=== PATIENT | female | born 1980 | race Caucasian/White ===

== ENCOUNTER 2017-07-29 19:59 | Emergency (ER) | payer OTHER ==
--- NOTE | 2017-07-29 20:48 | UC ---
Ear Complaint HPI - HPI Summary HPI Summary: She had a fever and malaise on Thursday and then felt better today. She bent over and suddenly felt pain in the left ear. She has no prior ear surgery. - History of Current Complaint Chief Complaint: UCRespiratory Stated Complaint: LEFT EAR PAIN Time Seen by Provider: 07/29/17 20:37 Hx Obtained From: Patient Hx Last Menstrual Period: 07/24/17 Onset/Duration: Sudden Onset, Lasting Hours Severity Initially: Moderate Severity Currently: Moderate Aggravating Factors: Nothing Alleviating Factors: Nothing Associated Signs/Symptoms: Positive: URI Symptoms - Allergies/Home Medications Allergies/Adverse Reactions: Allergies Allergy/AdvReac Type Severity Reaction Status Date / Time Pseudoephedrine Allergy Tachycardia Verified 07/29/17 20:09 [From Sudafed] Home Medications: Home Medications Copper (Iud) [Paragard IUD] 07/29/17 [History] PMH/Surg Hx/FS Hx/Imm Hx Previously Healthy: Yes - Surgical History Surgical History: None - Family History Known Family History: Positive: None - Social History Lives: With Family Alcohol Use: Rare Substance Use Type: None Smoking Status (MU): Never Smoked Tobacco - Immunization History Most Recent Influenza Vaccination: NOT IN 2017 Review of Systems ENT: Ear Ache All Other Systems Reviewed And Are Negative: Yes Physical Exam Triage Information Reviewed: Yes Appearance: Well-Appearing, No Pain Distress, Well-Nourished Vital Signs: Initial Vital Signs Temp 98.6 F 07/29/17 20:10 Pulse 88 07/29/17 20:10 Resp 18 07/29/17 20:10 Pulse Ox 100 07/29/17 20:10 Vital Signs Reviewed: Yes Eyes: Positive: Conjunctiva Clear ENT: Positive: TM bulging - left TM clear effusion with bulging but no purulence and no redness or dullness of the TM.. Negative: Tonsillar swelling, Tonsillar exudate, Trismus Neck exam: Normal Neck: Positive: Supple, Nontender, No Lymphadenopathy Respiratory: Positive: Chest non-tender, Lungs clear, Normal breath sounds, No respiratory distress, No accessory muscle use Cardiovascular: Positive: RRR, No Murmur, Pulses Normal Abdomen Description: Positive: Nontender, No Organomegaly, Soft Musculoskeletal Exam: Normal Musculoskeletal: Positive: Strength Intact, ROM Intact, No Edema Neurological Exam: Normal Neurological: Positive: Alert, Muscle Tone Normal Skin: Negative: rashes Ear Complaint Course/Dx - Differential Dx/Diagnosis Provider Diagnoses: left serous otitis. Discharge - Discharge Plan Condition: Good Disposition: HOME Prescriptions: Amoxicillin PO (*) [Amoxicillin 500 MG CAP*] 500 mg PO TID #30 cap Patient Education Materials: Earache (ED) Referrals: No Primary Care Phys,NOPCP [Primary Care Provider] - Additional Instructions: Start over the counter decongestants such as mucinex decongestant. If not better in a few days start the amoxicillin.
== END 2017-07-29 20:56 | disposition home or self-care (01) ==
LOC: UCCORT 19:59
DX: H66.92 Otitis media, unspecified, left ear (principal)
CPT/HCPCS: 99212; G0463